=== PATIENT | female | born 2000 | race American Indian/Alaskan Native ===

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

== ENCOUNTER 2023-11-23 23:32 | Inpatient (IN) | payer BC, OTHER ==
[2023-11-24] MEDS ORDERED: Lidocaine 1% 30 ML SDV INJECT ONE (00:21)
[2023-11-24] MEDS ORDERED: Misoprostol 400 MCG (4 X 100 MCG TAB) RECTAL PRN ×2 (00:21→18:22)
[2023-11-24] MEDS ORDERED: Methylergonovine 0.2 MG/1 ML Amp IM PRN (00:21)
[2023-11-24] MEDS ORDERED: Carboprost Tromethamine 250 MCG/1 ML Amp IM PRN ×2 (00:21→18:22)
[2023-11-24] MEDS ORDERED: Acetaminophen 325 MG Tab PO PRN (00:21)
[2023-11-24] MEDS ORDERED: Lactated Ringers 1,000 ML IV ONE (00:21)
[2023-11-24] MEDS ORDERED: Sodium Chloride 0.9% 10 ML Syringe FLUSH PRN ×2 (00:21→18:22)
[2023-11-24] MEDS ORDERED: Naloxone 2 MG/2 ML Syringe IVPUSH PRN (00:21)
[2023-11-24] MEDS ORDERED: Tranexamic Acid 1,000 MG in Sodium Chloride 0.9% 100 ML IV PRN ×2 (00:21→18:22)
[2023-11-24] MEDS ORDERED: Ondansetron 4 MG/2 ML SDV IVPUSH PRN (00:21)
[2023-11-24 01:31] LABS: HEMATOCRIT 33.1 % (37.0-47.0); HEMOGLOBIN 10.8 g/dL (12.0-16.0); MEAN CORPUSCULAR HEMOGLOBIN 28.1 pg (27.0-34.0); MEAN CORPUSCULAR HGB CONC 32.6 g/dL (33.0-35.0); RED BLOOD CELL COUNT 3.85 10^6/uL (4.2-5.4)
[2023-11-24] MEDS: Lactated Ringers 1,000 ML IV SCH ×3 (02:08→11:33)
[2023-11-24] MEDS: fentaNYL 100 MCG/2 ML SDV IVPUSH PRN ×3 (02:42→06:13)
[2023-11-24] MEDS ORDERED: Bupivacaine 0.25% 10 ML SDV ONE (07:14)
[2023-11-24] MEDS ORDERED: fentaNYL 100 MCG/2 ML SDV ONE (07:14)
[2023-11-24] MEDS ORDERED: ePHEDrine 50 MG/ML SDV IVPUSH PRN (07:38)
[2023-11-24] MEDS ORDERED: Phenylephrine HCl In 0.9% NaCl 1 MG/10 ML Syringe IVPUSH PRN (07:38)
[2023-11-24] MEDS ORDERED: Ropivacaine 200 MG in Premix Bag 1 BAG EPIDUR SCH (07:45)
[2023-11-24] MEDS: Oxytocin/Normal Saline 30 UNIT/500 ML BAG IV SCH ×2 (08:02→19:36)
[2023-11-24] MEDS: Promethazine 25 MG/ML SDV IM PRN ×2 (12:47→18:29)
[2023-11-24] MEDS ORDERED: Ibuprofen 400 MG Tab PO ONE (16:36)
[2023-11-24] MEDS ORDERED: ceFAZolin 2 GM Vial IVPUSH ONE (18:03)
[2023-11-24] MEDS ORDERED: Oxytocin 10 Units/1 ML SDV IM PRN (18:22)
[2023-11-24] MEDS ORDERED: Benzocaine/Menthol 20%-0.5% Spray 78 GM Cannister TOP PRN (18:22)
[2023-11-24] MEDS ORDERED: Witch Hazel Medicated Pads 100/Jar TOP PRN (18:22)
[2023-11-24] MEDS ORDERED: Simethicone 80 MG Tab.Chew PO PRN (18:22)
[2023-11-24] MEDS ORDERED: Zolpidem 5 MG Tab PO PRN (18:22)
[2023-11-25] MEDS: ceFAZolin 1 GM Vial IVPUSH SCH ×3 (04:10→15:02)
[2023-11-25] MEDS: Ibuprofen 800 MG Tab PO PRN ×2 (04:14→17:58)
[2023-11-25 06:22] LABS: HEMATOCRIT 29.8 % (37.0-47.0); HEMOGLOBIN 9.4 g/dL (12.0-16.0); MEAN CORPUSCULAR HEMOGLOBIN 27.5 pg (27.0-34.0); MEAN CORPUSCULAR HGB CONC 31.5 g/dL (33.0-35.0); MEAN CORPUSCULAR VOLUME 87.1 fL (80-100); RED BLOOD CELL COUNT 3.42 10^6/uL (4.2-5.4); WHITE BLOOD CELL COUNT,WBC 11.3 10^3/uL (5.0-10.0)
[2023-11-25] MEDS: Prenatal Multivitamin with Calcium/Folic Acid/Iron Tab PO SCH (09:11)
[2023-11-25] MEDS: Ferrous Sulfate 325 MG Tab PO SCH (09:11)
[2023-11-25] MEDS: Docusate Sodium 100 MG Cap PO PRN ×2 (09:12→23:02)
[2023-11-25] MEDS: Acetaminophen 325 MG Tab PO PRN (23:02)
[2023-11-26] MEDS: Ibuprofen 800 MG Tab PO PRN (06:16)
[2023-11-26] MEDS: Ferrous Sulfate 325 MG Tab PO SCH (08:53)
[2023-11-26] MEDS: Docusate Sodium 100 MG Cap PO PRN (08:53)
[2023-11-26] MEDS: Prenatal Multivitamin with Calcium/Folic Acid/Iron Tab PO SCH (08:53)
[2023-11-26] MEDS: Acetaminophen 325 MG Tab PO PRN (08:54)
== END 2023-11-26 12:15 | disposition home or self-care (01) | DRG 560 ==
LOC: DL.OBCHECK 23:32 → DL.OB 11-24 00:21 → OBSVTOIN 11-24 17:45 → DL.MS 11-25 10:26
PROVIDERS: ADMIT Family Medicine; ATTEND Family Medicine
PROC: 10E0XZZ Delivery of Products of Conception, External Approach (ICD-10-PCS; principal; 2023-11-24)
PROC: 3E0R3BZ Introduction of Anesthetic Agent into Spinal Canal, Percutaneous Approach (ICD-10-PCS; 2023-11-24)
PROC: 00HU33Z Insertion of Infusion Device into Spinal Canal, Percutaneous Approach (ICD-10-PCS; 2023-11-24)
PROC: 0HQ9XZZ Repair Perineum Skin, External Approach (ICD-10-PCS; 2023-11-24)
PROC: 10D17Z9 Manual Extraction of Products of Conception, Retained, Via Natural or Artificial Opening (ICD-10-PCS; 2023-11-24)
DX: O48.0 Post-term pregnancy (principal); Z37.0 Single live birth; O99.02 Anemia complicating childbirth; O70.0 First degree perineal laceration during delivery; O77.0 Labor and delivery complicated by meconium in amniotic fluid; O72.2 Delayed and secondary postpartum hemorrhage; O26.13 Low weight gain in pregnancy, third trimester; Z3A.40 40 weeks gestation of pregnancy; Z90.49 Acquired absence of other specified parts of digestive tract; Z90.89 Acquired absence of other organs
CPT/HCPCS: 36415; 51702; 59409; 85027; A9270-GY; J0690; J2210; J2405; J2550; J2590; J3010; J3490; J7120